=== PATIENT | male | born 1930 | race Caucasian/White ===

== ENCOUNTER 2020-08-14 08:00 | Emergency (ER) | payer OTHER ==
[~2020-08-14] VITALS: Ht 177.8 cm; Wt 94.3 kg
--- NOTE | 2020-08-14 08:04 | NUR ---
BIBA TO BED 10.
[2020-08-14 08:10] VITALS: BP 133/50
--- NOTE | 2020-08-14 08:15 | NUR ---
PT BIBA FROM [facility] LOW BP 60/30S THIS MORNING AND ALOC. PER PARAMEDICS, PT HAS NO MEDS OR PHYSICAL ACTIVITT CHANGED. A&O X0 AND NON VERBAL UPON TRIAGE HIS BASELINE PER EMS. PT APPEARS NO FEVER, SOB, RESPIRATORY DISTRESS, ACCESSORY MUSCLE USE, OR COUGH AT THIS TIME; PATIENT'S PAIN IS 0/10 ON FLACC SCALE AT THIS TIME; VSS; PATIENT POSITIONED FOR COMFORT; HOB ELEVATED; BEDRAILS UP X2; BED DOWN. ER MD MADE AWARE OF PT STATUS.
[2020-08-14] MEDS ORDERED: NACL 0.9% 500 ML IV SCH (08:20)
--- NOTE | 2020-08-14 08:44 | NUR ---
EDEN SWAB COLLECTED AND SENT TO THE LAB.
[2020-08-14 08:55] LABS: BASOPHILS % (AUTO) 0.4 % (0.0-2.0); EOSINOPHILS # (AUTO) 0.3 K/uL (0-0.4); EOSINOPHILS % (AUTO) 3.5 % (0.0-4.0); HEMATOCRIT 36.8 % (36-52); HEMOGLOBIN 12.3 g/dL (12.0-18.0); LYMPHOCYTES # (AUTO) 1.9 K/uL (2.0-11.5); LYMPHOCYTES % (AUTO) 22.1 % (20.5-51.1); MEAN CORPUSCULAR HEMOGLOBIN 31 pg (27-31); MEAN CORPUSCULAR HGB CONC 33 g/dL (33-37); MEAN CORPUSCULAR VOLUME 92.8 fL (80-94); MONOCYTES # (AUTO) 0.6 K/uL (0.8-1.0); MONOCYTES % (AUTO) 7.4 % (1.7-9.3); NEUTROPHILS # (AUTO) 5.6 K/uL (1.8-7.7); NEUTROPHILS % (AUTO) 66.6 % (42.2-75.2); PLATELET COUNT (AUTO) 142 K/uL (140-450); RED BLOOD CELL COUNT(AUTO) 3.97 MIL/uL (4.20-6.10); RED CELL DISTRIBUTION WIDTH 13.7 % (11.6-13.7); WHITE BLOOD COUNT (AUTO) 8.4 K/uL (4.8-10.8)
[2020-08-14 09:48] LABS: ALBUMIN 2.9 g/dL (3.4-5.0); ANION GAP 9.2 (8-16); ASPARTATE AMINOTRANSFERASE 20 U/L (15-37); CARBON DIOXIDE 27.4 mmol/L (21-32); CHLORIDE 106 mmol/L (98-107); CREATININE 1.1 mg/dL (0.6-1.3); GLUCOSE 156 mg/dL (74-106); POTASSIUM 3.6 mmol/L (3.5-5.1); PROTHROMBIN TIME 10.5 secs (10.8-13.4); SODIUM SERUM 139 mmol/L (136-145); TOTAL BILIRUBIN 0.4 mg/dL (0.0-1.0); UREA NITROGEN, BLOOD 17 mg/dL (7-18)
--- NOTE | 2020-08-14 10:40 | NUR ---
Spoke to patients daughter Ruma Camarena, Call for update on patient [phone]
[2020-08-14 10:47] LABS: APPEARANCE,URINE CLEAR (CLEAR); BILIRUBIN,URINE NEGATIVE (NEGATIVE); BLOOD, URINE TRACE-I (NEGATIVE); COLOR,URINE YELLOW (YELLOW); LEUKOCYTE ESTERASE ,URINE NEGATIVE (NEGATIVE); NITRITE, URINE NEGATIVE (NEGATIVE); PH,URINE 7.5 (5.0-9.0); UGLUCOSE NEGATIVE (NEGATIVE)
[2020-08-14 11:25] LABS: RBC,URINE 0-5 /HPF (0-5); WBC,URINE 0-5 /HPF (0-5)
--- NOTE | 2020-08-14 11:46 | NUR ---
Pete rodriguez in [facility] - 08/14/20 at 1147 by MED PT IS ON NPO ACCORDING TO DR. JEWELL'S TELEPHONE ORDER.
--- NOTE | 2020-08-14 12:29 | NUR ---
Patient to be transferred back to [facility]. Receiving facility has accepting physician and available space. Patient belongings inventoried and will be sent with patient. Copy of nursing notes, lab reports, EKG, Physicians Orders and X-rays to be sent with patient. Report called to Olvin at receiving facility. [facility] transportation service has been called for transfer. ETA is 2:30pm.
[2020-08-14 15:56] VITALS: BP 145/59
--- NOTE | 2020-08-14 15:56 | NUR ---
[facility] IS TRANSFERING PT BACK TO [facility] AT BEDSIDE.
== END 2020-08-14 12:29 ==
LOC: MED 08:00
DX: R41.0 Disorientation, unspecified (principal); E11.9 Type 2 diabetes mellitus without complications; I10 Essential (primary) hypertension; E78.5 Hyperlipidemia, unspecified; Z98.890 Other specified postprocedural states
CPT/HCPCS: 36415; 36600; 71045; 80053; 81001; 82803; 83605; 83880; 84484; 85025; 85610; 85730; 87040; 87086; 87426; 93005; 96360; 99285; J7030